=== PATIENT | female | born 1950 | race Caucasian/White ===

== ENCOUNTER → 2017-05-17 | Outpatient (CLI) | payer MEDICARE, BC ==
[~2017-05-17] MED LIST: ALLERGY SHOT INJ; ALN70T; ALPR1T PO; ASP325TEC PO; ATOR20TA66 PO; CHOL2000 PO; CLD600T; FLUT16SP22 NSEACH; LEVO125T6 PO; LEVO137T24 PO; LISI-556 PO; LISI10TA2 PO; MULT-608; NIAC1CAP PO; OMG1KC PO; VENL225T3 PO; VENL75CA55 PO; VNL75T PO
--- NOTE | 2017-05-17 10:50 | Diagnostic Imaging Report ---
CLINICAL INDICATION: Postop fusion. Six-month followup. EXAM: Axial CT scan of the cervical spine performed without IV contrast. Sagittal and coronal reformatted images were created. COMPARISON: CT scan of cervical spine dated 01/03/2013. FINDINGS: There is interval postop changes to the cervical spine seen with placement of C3 through C6 anterior cervical interbody fusion with intervertebral graft material hardware seen. There is no evidence of osteolysis or hardware fracture. There is note of intervertebral bone material seen in the C3-C4 and C4-C5 intervertebral regions. There is bone development in the C5-C6 level, but there is note of a lucency across it. This area should be closely followed on subsequent imaging. The previously seen C6-C7 anterior cervical disc fusion hardware has been removed, and there is interval solid bony fusion/bridging at the C6-C7 level. There is no significant paraspinal soft tissue abnormality. Cervical spine normal alignment with no acute fracture or dislocation. There is cervical spine degenerative disease again seen. C1-C2: There is stable small spurring at the atlantoodontoid interval anteriorly. C2-C3: Unremarkable. C3-C4: There is small bilateral uncinate spurs which is not significantly changed. There is relatively stable moderate to severe right neural foramen narrowing and mild to moderate left neural foramen narrowing. C4-C5: Again seen small bilateral uncinate spurs which is not significantly changed. There is mild to moderate left neural foramen narrowing. Otherwise remainder this level is unremarkable. C5-C6: Stable small posterior vertebral body spurs and small bilateral uncinate spurs. There is no major central canal narrowing. There is no significant right neural foramen narrowing. There is stable at least moderate left neural foramen narrowing. C6-C7: There is slight progression of minimal posterior vertebral spurs which cause no significant central canal narrowing. There is no significant neural foramen narrowing. C7-T1: Unremarkable. IMPRESSION: 1: There are interval postop changes to the cervical spine with interval placement of C3 through C6 anterior cervical interbody fusion with no hardware complications. There is incomplete bony bridging/fusion seen at these levels, but there is intervertebral calcification noted. These areas should continue to be followed on subsequent imaging. 2: There is interval removal of the previously seen C6-C7 anterior cervical fusion hardware with solid intervertebral bony fusion/bridging seen. 3: Otherwise, there are stable cervical spine degenerative changes, as described above. Dictated by: Dictated on workstation # [id number]
== END ==
LOC: RAD 09:51
PROVIDERS: ATTEND Orthopaedic Surgery Orthopaedic Surgery of the Spine
DX: M48.02 Spinal stenosis, cervical region (principal); M47.812 Spondylosis without myelopathy or radiculopathy, cervical region
CPT/HCPCS: 72125

== ENCOUNTER → 2017-11-15 | Outpatient (CLI) | payer MEDICARE, BC ==
--- NOTE | 2017-11-15 10:05 | Diagnostic Imaging Report ---
PROCEDURE: CT cervical spine without contrast. TECHNIQUE: Multiple contiguous axial images were obtained through the cervical spine without the use of intravenous contrast. Sagittal and coronal reformations were then performed. INDICATION: Cervical spine surgery. The study is performed for followup. COMPARISON: Correlation is made with prior CT from 05/17/2017. FINDINGS: Curvature and alignment of the cervical spine is normal. Postop changes of ACDF extending from C3 through C6 is again noted. The hardware appears intact. No fracture or loosening is identified. Bony structures are intact. No acute fracture is detected. There are inter-vertebral devices present at the C3-C4, C4-C5 and C5-C6 levels. There appears to be osseous fusion between the C6 and C7 vertebral bodies. Old screw tracts within the C7 vertebral body are seen. The prevertebral tissues are within normal limits. Odontoid is intact. The facets are unremarkable. IMPRESSION: Stable postop changes of C3 through C6 ACDF when compared with prior exam from 05/17/2017. No complicating features are identified. No definite evidence of hardware fracture or loosening is identified. Dictated by: Dictated on workstation # [id number]
== END ==
LOC: RAD 09:23
PROVIDERS: ATTEND Orthopaedic Surgery Orthopaedic Surgery of the Spine
DX: M54.2 Cervicalgia (principal); Z98.890 Other specified postprocedural states
CPT/HCPCS: 72125